=== PATIENT | male | born 1995 | race Caucasian/White ===

== ENCOUNTER 2016-08-14 18:22 | Emergency (ER) | payer BC ==
[~2016-08-14] VITALS: Ht 180.3 cm; Wt 68.0 kg
[2016-08-14] MEDS ORDERED: PROZAC PO (18:30)
--- NOTE | 2016-08-14 18:35 | NUR ---
PT IS IN ROOM #2A. DR MOORE EVALUATED THE PT.
[2016-08-14] MEDS: IV NORMAL SALINE 1000 ML BAG IV ONE (19:00)
[2016-08-14 19:17] LABS: BASOPHILS # (AUTO) 0.1 K/uL (0.0-8.0); BASOPHILS % (AUTO) 0.8 % (0.0-2.0); EOSINOPHILS % (AUTO) 0.4 % (0.0-7.0); HEMATOCRIT 47.2 % (40-50); HEMOGLOBIN 16.1 G/DL (14.0-18.0); LYMPHOCYTES % (AUTO) 8.1 % (20.5-74.5); MEAN CORPUSCULAR HEMOGLOBIN 28.9 UUG (27.0-31.0); MEAN CORPUSCULAR HGB CONC 34 g/dL (32.0-37.0); MEAN CORPUSCULAR VOLUME 84.6 FL (82.0-92.0); MONOCYTES # (AUTO) 0.8 K/UL (0.1-1.30); MONOCYTES % (AUTO) 6.5 % (0-11); NEUTROPHILS # (AUTO) 10.4 K/UL (1.8-8.9); NEUTROPHILS % (AUTO) 84.2 % (31.5-64.5); PLATELET COUNT (AUTO) 155 K/UL (150-450); RED BLOOD CELL COUNT(AUTO) 5.58 MIL/UL (4.7-6.1); WHITE BLOOD COUNT (AUTO) 12.3 K/UL (4.0-11.2)
[2016-08-14 19:21] LABS: CARBON DIOXIDE 22 mmol/L (21-32); CHLORIDE 100 mmol/L (98-107); CREATININE 1.2 mg/dL (0.6-1.3); GLUCOSE 125 mg/dL (74-106); POTASSIUM 3.8 mmol/L (3.5-5.1); UREA NITROGEN, BLOOD 12 mg/dL (7-18)
--- NOTE | 2016-08-14 19:31 | NUR ---
Received report from LUIS ANTONIO Saha. Assumed care of pt at this time. Pt returned from CT via gurney. Pt alert and oriented x 4. No neuro deficits noted at this time. Resp even and unlabored. Pt c/o right sided facial pain. Sts pain is tolerable, declines need for medication. Abrasions, swelling and bruising noted to right side. Pt denies any vision changes. Pt resting in position of comfort for self. Resp even and unlabored. No obvious signs of distress. Fluid bolus infusing freely to gravity. Family at bedside.
[2016-08-14 19:32] LABS: ETHANOL < 3 MG/DL (0-0)
--- NOTE | 2016-08-14 20:12 | NUR ---
Pt stable for discharge per MD. IV dc'd, catheter intact. Drsg applied. No problems noted to site. Pt given ACI. Pt verbalized understanding of dc instructions. 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
[2016-08-14 20:15] VITALS: BP 147/82
== END 2016-08-14 20:20 | disposition home or self-care (01) ==
LOC: ER 18:24
DX: R55 Syncope and collapse (principal)
CPT/HCPCS: 36415; 70450; 85025; 93005; A4663; G0480; J7030

== ENCOUNTER 2021-11-27 10:25 | Emergency (ER) | payer BC ==
[~2021-11-27] VITALS: Ht 170.2 cm; Wt 79.4 kg
[~2021-11-27 10:25] MED LIST: PROZAC PO
[2021-11-27] MEDS ORDERED: IV NORMAL SALINE 1000 ML BAG IV ONE (11:00)
[2021-11-27 11:05] LABS: HEMATOCRIT 42.3 % (36.7-47.1); MEAN CORPUSCULAR HEMOGLOBIN 29.3 uug (23.8-33.4); MEAN CORPUSCULAR VOLUME 85.3 fL (73.0-96.2); PLATELET COUNT (AUTO) 180 K/uL (152-348)
[2021-11-27] MEDS ORDERED: CHLORDIAZEPOXIDE HCL 25 MG CAPSULE PO ONE (11:30)
[2021-11-27 11:59] LABS: CREATININE 0.9 mg/dL (0.6-1.3)
[2021-11-27 12:04] LABS: BILIRUBIN,TOTAL 0.7 mg/dL (0.2-1.0); TOTAL PROTEIN, SERUM 7.9 g/dL (6.4-8.2)
--- NOTE | 2021-11-27 12:06 | NUR ---
patient refusing librium at this time, made aware. pt resting comfortably in bed, fluids running.
[2021-11-27 12:07] LABS: *AMPHETAMINE, URINE NEGATIVE (NEGATIVE); *CANNABINOID, URINE POSITIVE (NEGATIVE); *COCCAINE, URINE NEGATIVE (NEGATIVE); *OPIATE, URINE NEGATIVE (NEGATIVE); *PHENCYCLIDINE SCREEN,URINE NEGATIVE (NEGATIVE)
[2021-11-27 12:49] LABS: ETHANOL < 3 MG/DL (0-0)
--- NOTE | 2021-11-27 12:50 | NUR ---
IV removed, site secured with pressure dressing. Patient discharged to home in stable condition. Written and verbal after care instructions given. Patient verbalizes understanding of instructions. Stressed follow up or return to ER for worsening s/s.
== END 2021-11-27 12:55 | disposition home or self-care (01) ==
LOC: ER 10:25
DX: R23.3 Spontaneous ecchymoses (principal); R94.31 Abnormal electrocardiogram [ECG] [EKG]; G40.909 Epilepsy, unspecified, not intractable, without status epilepticus; I10 Essential (primary) hypertension
CPT/HCPCS: 80053; 85025; 36415; 93005; 70450; 99285; 96360; 80320; 80307; J7040; A4663; G0480